=== PATIENT | female | born 1990 | race Caucasian/White ===

== ENCOUNTER 2017-03-02 05:27 | Inpatient (IN) | payer BC ==
[2017-03-02] MEDS ORDERED: Sodium Chloride 0.9% 10 ML Syringe FLUSH PRN (06:36)
[2017-03-02] MEDS ORDERED: Oxytocin/Lactated Ringers 10 UNIT/1,000 ML BAG IV SCH (06:45)
[2017-03-02] MEDS ORDERED: Lactated Ringers 1,000 ML IV SCH (06:45)
[2017-03-02] MEDS ORDERED: Lidocaine 1% 50 ML MDV ONE (07:09)
[2017-03-02] MEDS: Lidocaine 1% 20 ML MDV INJECT ONE ×2 (07:23)
[2017-03-02] MEDS ORDERED: Ibuprofen 600 MG Tab PO PRN (07:26)
[2017-03-02] MEDS ORDERED: Docusate Sodium 100 MG Cap PO PRN (07:26)
[2017-03-02] MEDS ORDERED: Lanolin 100% Cream 7 GM Tube TOP PRN (07:26)
[2017-03-02] MEDS ORDERED: Benzocaine/Menthol 20%-0.5% Spray 56 GM Canister TOP PRN (07:26)
[2017-03-02] MEDS ORDERED: Witch Hazel Medicated Pads 100/Jar TOP PRN (07:26)
--- NOTE | 2017-03-02 07:29 | PCM.LDHP ---
L&D History of Present Illness - General Date of Service: 03/02/17 Admit Problem/Dx: Admission Diagnosis/Problem Admission Diagnosis/Problem with one fetus in third trimester Source of Information: Patient, Old Records - History of Present Illness Introduction:: 26 year old at 39w2d presented complaining of contractions and found to be [address] Branch without complications. Prior SVDx2 largest 8#. AB+/Rub imm/GBS neg - Related Data Allergies/Adverse Reactions: Allergies Allergy/AdvReac Type Severity Reaction Status Date / Time No Known Allergies Allergy Verified 03/02/17 06:11 Past Medical History - Past Health History Medical/Surgical History: Denies Medical/Surgical History Social & Family History - Family History Family Medical History: Unobtainable - Tobacco Core Measures Tobacco Use/Smoking Within Last 30 Days: Yes - Alcohol Use Alcohol Use History: No - Recreational Drug Use Recreational Drug Use: No Drug Use in Last 12 Months: No - Living Situation & Occupation Living situation: Reports: H&P Review of Systems - Review of Systems: Review Of Systems: See Below General: Reports: No Symptoms HEENT: Reports: No Symptoms Pulmonary: Reports: No Symptoms Cardiovascular: Reports: No Symptoms Gastrointestinal: Reports: No Symptoms Genitourinary: Reports: No Symptoms Musculoskeletal: Reports: No Symptoms Skin: Reports: No Symptoms Psychiatric: Reports: No Symptoms Neurological: Reports: No Symptoms Hematologic/Lymphatic: Reports: No Symptoms Immunologic: Reports: No Symptoms L&D Exam - Exam Exam: See Below - Vital Signs Weight: 79.651 kg - OB Specific Fundal Height In cm: 39 Contraction Intensity: Mild to Moderate Movement: Active Heart Tones: Present Heart Rate (FHR) Variability: Moderate (6-25 bmp) Presentation: Vertex - Thorne Score Thorne Score Cervix Position: Midposition Thorne Score Consistency: Soft Thorne Score Effacement: >80% Thorne Score Dilation: > 5 cm Thorne Score 's Station: +1, +2 Thorne Score Total: 12 - Exam General: Alert, Oriented HEENT: PERRLA, Conjunctiva Clear, EACs Clear, EOMI, Hearing Intact, Mucosa Moist & Falling [place], Nares Patent, Normal Nasal Septum, Posterior Pharynx Clear, TMs Clear Neck: Supple, Trachea Midline Lungs: Clear to Auscultation, Normal Respiratory Effort Cardiovascular: Regular Rate, Regular Rhythm GI/Abdominal Exam: Normal Bowel Sounds, Soft, Non-Tender, No Organomegaly, No Distention, No Abnormal Bruit, No Mass, Pelvis Stable Genitourinary: Normal external exam Back Exam: Normal Inspection, Full Range of Motion Extremities: Normal Inspection, Normal Range of Motion, Non-Tender, No Pedal Edema, Normal Capillary Refill Skin: Warm, Dry, Intact Neurological: Cranial Nerves Intact, Reflexes Equal Bilateral Psychiatric: Alert, Normal Affect, Normal Mood Problem List Initiated/Reviewed/Updated: Yes Orders Last 24hrs: Active Orders 24 hr Category Date Time Status Patient Status Manage Transfer [TRANSFER] Routine ADT 03/02/17 07:21 Ordered Activity as Tolerated [RC] PFP Care 03/02/17 06:36 Active Communication Order [RC] ASDIRECTED Care 03/02/17 06:36 Active Heart Tones [RC] ASDIRECTED Care 03/02/17 06:37 Active Notify Provider [RC] PFP Care 03/02/17 06:36 Active Notify Provider [RC] PRN Care 03/02/17 06:36 Active Peripheral IV Care [RC] . DIRECTED Care 03/02/17 06:37 Active Vital Signs [RC] PER UNIT ROUTINE Care 03/02/17 06:36 Active Clear Liquid Diet [DIET] Diet 03/02/17 Breakfast Active Lactated Ringers [Ringers, Lactated] 1,000 ml Med 03/02/17 06:45 Active IV ASDIRECTED Oxytocin/Lactated Ringers [Pitocin in LR 10 Units/1,000 Med 03/02/17 06:45 Active ML] 10 unit in 1,000 ml IV .CONTINUOUS Sodium Chloride 0.9% [Saline Flush] Med 03/02/17 06:36 Active 10 ml FLUSH ASDIRECTED PRN Electronic Heart Tones Ext w TOCO [WOMSER] Oth 03/02/17 06:36 Ordered Routine Electronic Heart Tones Internal [WOMSER] Per Unit Oth 03/02/17 06:36 Ordered Routine Peripheral IV Insertion Adult [OM.PC] Routine Oth 03/02/17 06:36 Ordered Resuscitation Status Routine Resus Stat 03/02/17 06:36 Ordered Medication Orders Lactated Ringer's (Ringers, Lactated) 1,000 mls @ 100 mls/hr IV ASDIRECTED ANUSHA Last Admin: 03/02/17 06:49 Dose: 100 mls/hr Oxytocin/Lactated Ringer's (Pitocin In Lr 10 Units/1,000 Ml) 10 unit in 1,000 mls @ 500 mls/hr IV .CONTINUOUS ANUSHA Last Admin: 03/02/17 06:49 Dose: 500 mls/hr Sodium Chloride (Saline Flush) 10 ml FLUSH ASDIRECTED PRN PRN Reason: Keep Vein Open Assessment/Plan Comment:: 26 year old here in labor. Doing well. Declines pain meds Anticipate .
--- NOTE | 2017-03-03 08:27 | PCM.DCSUM1 ---
Discharge Summary - Discharge Data Discharge Date: 03/03/17 Discharge Disposition: Home, Self-Care 01 Condition: Good - Patient Instructions Diet: Usual Diet as Tolerated Activity: No Strenuous Activities Driving: May Drive Today Showering/Bathing: May Shower Notify Provider of: Fever, Increased Pain, Swelling and Redness, Drainage, Nausea and/or Vomiting - Discharge Plan Home Medications: Home Meds [id number]/Ferrous Fumarate/FA [ Tablet] 1 tab PO DAILY 03/02/17 [History] Patient Handouts: Vaginal Delivery, Care After Referrals: Shawn Branch MD [Physician] - (6 week follow up in clinic. Please call for appointments. ) - Discharge Summary/Plan Comment DC Time >30 min.: No - General Info Date of Service: 03/03/17 Functional Status: Reports: Pain Controlled - Review of Systems General: Reports: No Symptoms HEENT: Reports: No Symptoms Pulmonary: Reports: No Symptoms Cardiovascular: Reports: No Symptoms Gastrointestinal: Reports: No Symptoms Genitourinary: Reports: No Symptoms Musculoskeletal: Reports: No Symptoms Skin: Reports: No Symptoms Neurological: Reports: No Symptoms Psychiatric: Reports: No Symptoms - Patient Data Vitals - Most Recent: Last Vital Signs Temp 37.1 C 03/03/17 04:26 Pulse 75 03/03/17 04:26 Resp 16 03/03/17 04:26 BP 109/48 L 03/03/17 04:26 Pulse Ox 98 03/03/17 04:26 Weight - Most Recent: 79.651 kg I&O - Last 24 hours: Intake & Output 03/02/17 03/03/17 03/03/17 22:59 06:59 14:59 Intake Total 2540 Balance 2540 Med Orders - Current: Current Medications Benzocaine/Menthol (Dermoplast Pain Relief [place]) 0 gm TOP ASDIRECTED PRN PRN Reason: Perineal Comfort Measure Last Admin: 03/02/17 09:15 Dose: 1 spray Docusate Sodium (Colace) 100 mg PO BID PRN PRN Reason: Constipation Emollient Ointment (Lansinoh Hpa) 0 gm TOP ASDIRECTED PRN PRN Reason: Sore Nipples Ibuprofen (Motrin) 600 mg PO Q6H PRN PRN Reason: Mild pain or fever Witch Shannan (Tucks) 1 pad TOP ASDIRECTED PRN PRN Reason: Hemorrhoid pain Last Admin: 03/02/17 09:15 Dose: 1 pad Discontinued Medications Lactated Ringer's (Ringers, Lactated) 1,000 mls @ 100 mls/hr IV ASDIRECTED ANUSHA Last Admin: 03/02/17 06:49 Dose: 100 mls/hr Oxytocin/Lactated Ringer's (Pitocin In Lr 10 Units/1,000 Ml) 10 unit in 1,000 mls @ 500 mls/hr IV .CONTINUOUS ANUSHA Last Admin: 03/02/17 06:49 Dose: 500 mls/hr Lidocaine HCl (Xylocaine 1%) 20 ml INJECT ONETIME ONE Stop: 03/02/17 07:13 Last Admin: 03/02/17 07:23 Dose: 20 ml Lidocaine HCl (Xylocaine 1%) Confirm Administered Dose 50 ml .ROUTE .STK-MED ONE Stop: 03/02/17 07:10 Last Admin: 03/02/17 07:22 Dose: Not Given Sodium Chloride (Saline Flush) 10 ml FLUSH ASDIRECTED PRN PRN Reason: Keep Vein Open - Exam General: Reports: Alert, Oriented HEENT: Reports: Pupils Equal, Pupils Reactive, EOMI, Mucous Membr. Moist/Candor Neck: Reports: Supple Lungs: Reports: Clear to Auscultation, Normal Respiratory Effort Cardiovascular: Reports: Regular Rate, Regular Rhythm GI/Abdominal Exam: Normal Bowel Sounds, Soft, Non-Tender, No Organomegaly, No Distention, No Abnormal Bruit, No Mass, Pelvis Stable Back Exam: Reports: Normal Inspection, Full Range of Motion Extremities: Normal Inspection, Normal Range of Motion, Non-Tender, No Pedal Edema, Normal Capillary Refill Skin: Reports: Warm, Dry, Intact Wound/Incisions: Reports: Healing Well Neurological: Reports: No New Focal Deficit Psy/Mental Status: Reports: Alert, Normal Affect, Normal Mood *Q Meaningful Use (DIS) - VTE *Q VTE Criteria *Q: - Stroke *Q Stroke Criteria *Q: - AMI *Q AMI Criteria *Q:
== END 2017-03-03 09:45 | disposition home or self-care (01) | DRG 560 ==
LOC: JD.OBCHECK 05:27 → JD.OB 05:31 → JD.OBCHECK 06:00 → OBSVTOIN 07:05 → JD.OB 07:05
PROVIDERS: ADMIT Obstetrics & Gynecology; ATTEND Obstetrics & Gynecology
PROC: 10E0XZZ Delivery of Products of Conception, External Approach (ICD-10-PCS; principal; 2017-03-02)
PROC: 10907ZC Drainage of Amniotic Fluid, Therapeutic from Products of Conception, Via Natural or Artificial Opening (ICD-10-PCS; 2017-03-02)
PROC: 0HQ9XZZ Repair Perineum Skin, External Approach (ICD-10-PCS; 2017-03-02)
DX: O99.334 Smoking (tobacco) complicating childbirth (principal); O70.0 First degree perineal laceration during delivery; Z3A.39 39 weeks gestation of pregnancy; Z37.0 Single live birth
CPT/HCPCS: 59300; 59409; A9270-GY; J2590; J7120